=== PATIENT | male | born 1990 | race Caucasian/White ===

== ENCOUNTER 2019-07-02 14:27 | Observation (INO) ==
--- NOTE | 2019-07-02 14:42 | ERNOTE ---
Medical Problem HPI - Narrative Date of Service: 07/02/19 - General Chief Complaint: General Assessment Time Seen by Provider: 07/02/19 14:42 Source: patient Exam Limitations: no limitations - Immun/Allergies/Home Medications Immunizations: IMMUNIZATION HX Immunizations Up to Date Yes History of Influenza Vaccine Yes Hx Pneumococcal Vaccination No Allergies/Adverse Reactions: Allergies seasonal Allergy (Uncoded 07/02/19 14:37) Home Medications: HOME MEDICATIONS NK 07/02/19 [Last Taken Unknown] - Pain Score Pain Score #1 Pain Score: 8 - History of Present History Narrative: The patient is a 29 year old male who presents for buttock wound which has been present since 06/27/19. There are no associated symptoms. The patient reports pain to left buttock with extension into anus, 03/09. There are no alleviating factors. There are aggravating factors of sitting position, pressure to area and bowel movement. Previous treatments have included: none. The past medical history includes: noncontributory. The social history is positive for current tobacco use. The patient has had no known ill contacts. Patient states he had a bowel movement on 06/27/19 and then following noted increased pain to left buttock and rectum. Review of Systems - Review of Systems Constitutional: Present: diaphoresis. Absent: fever, chills, fatigue EYE: Present: no symptoms reported ENT: Present: no symptoms reported. Absent: ear pain, nasal drainage, sore throat Respiratory: Present: no symptoms reported. Absent: shortness of breath, cough Cardiology: Present: no symptoms reported. Absent: chest pain Gastrointestinal/Abdominal: Present: other - rectal pain, left buttock . Ab sent: nausea, vomiting, diarrhea, abdominal pain Genitourinary: Present: no symptoms reported Musculoskeletal: Present: no symptoms reported Skin: Present: lesions Neurological: Present: no symptoms reported All Other Systems: All systems neg except as marked Medical History (Last Reviewed 07/02/19 @ 15:53 by GERMAINE Salinas) Acute conjunctivitis Onset Date: 08/15/17 Surgical History: Surgical History (Last Reviewed 07/02/19 @ 15:53 by GERMAINE Salinas) H/O hernia repair Onset Date: 1997 Family History: Family History (Last Reviewed 07/02/19 @ 15:53 by GERMAINE Salinas) Other Cerebral palsy Diabetes Social History: (Last Reviewed 07/02/19 @ 15:53 by GERMAINE Salinas) Social History: adopted: No foster care: No chcf: No Marital status: lives independently: Yes household members: spouse caregiver/support person: No current occupational status: employed 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 Service: No Tobacco: Smoking Status: Current every day smoker tobacco type: cigarettes Smoking cigarettes per day: 10.0 Smoking packs per day: 0.5 Alcohol: alcohol intake: current alcohol intake frequency: 0-2 drinks per day Substance Use: substance use type: does not use Dietary Habits: caffeine: Yes Physical Exam - Physical Exam General Appearance: Present: wd/wn, alert, moderate distress Head Exam: Present: normal inspection Eye Exam: Normal inspection: bilateral Ears, Nose, Throat: Present: normal except -, pharyngeal erythema, tonsillar exudate, tonsillar swelling - 3+ bilateral Neck: Present: normal inspection Respiratory: Present: no respiratory distress, normal breath sounds, no accessory muscle use, lungs clear Cardiovascular/Chest: Present: no murmur, tachycardia Rectal Exam: Present: other - fluctuant abscess to left buttock with extension to left rectum Neurological Exam: Present: alert, oriented, normal mood/affect, no motor/sensory deficits Skin Exam: Present: normal color, diaphoresis Progress - Date and Time Seen: Date and Time: 07/02/19 15:10 Discussed case with , finding concerning for perirectal abscess. will present to evaluate patient. Patient last ate at 1230, salad. 07/02/19 16:29 present to evaluate patient and will admit to ambulatory surgery for I&D of perirectal abscess. - Results and Orders Patient's Lab Results:: I have reviewed the patient's lab results. - Vital Signs Patient's Vital Signs:: I have reviewed the patient's vital signs. Vital Signs: Vital Signs 07/02/19 14:30 Temperature 36 C Pulse Rate 103 H Respiratory Rate 20 Blood Pressure 151/87 H O2 Sat by Pulse Oximetry 98 - Progress/Reassessment Chief Complaint: General Assessment Departure Clinical Impression: Tori-rectal abscess, Strep throat - Departure Disposition: Still a patient Condition: Good
[2019-07-02] MEDS ORDERED: RINGER'S SOLUTION,LACTATED 1,000 ML IV PRN ×2 (16:42→18:50)
--- NOTE | 2019-07-02 17:01 | ANES ---
Anesthesia Pre Procedure Eval Vitals/Labs: Last Vital Signs Temp 37.3 C 07/02/19 16:38 Pulse 98 07/02/19 16:38 Resp 17 07/02/19 16:38 BP 156/100 H 07/02/19 16:38 Pulse Ox 98 07/02/19 16:38 HOME MEDICATIONS Cephalexin 500 mg PO BID 10 Days #20 cap 07/02/19 [Last Taken Unknown] Allergies/Adverse Reactions: Allergies Allergy/AdvReac Type Severity Reaction Status Date / Time seasonal Allergy Uncoded 07/02/19 14:37 - Planned Procedure Planned Procedure: buttocks pain and swelling Medication List Reviewed:: Yes Allergies Verified: Yes Medical History (Last Reviewed 07/02/19 @ 17:00 by Chente King CRNA) Acute conjunctivitis Onset Date: 08/15/17 Surgical History (Last Reviewed 07/02/19 @ 17:00 by Chente King CRNA) H/O hernia repair Onset Date: 1997 Family History (Last Reviewed 07/02/19 @ 17:00 by Chente King CRNA) Other Cerebral palsy Diabetes - Family Anesthesia History Family History:: no untoward family reactions to anesthesia - Airway/Neck/Teeth Within Normal Limits:: Yes Teeth Condition: intact Neck Exam: full range of motion Mallampatti Score: 2 Thyromental (T-M) distance: > 6 cm Mandibulo Hyoid distance: > 3 cm - Respiratory Respiratory Physical: lungs clear Smoking Status: Current every day smoker Discussed smoking cessation including day of surgery: Yes Sleep Apnea currently treated: No Sleep Apnea by current assessment: No - Cardiovascular Tolerate Activity: Good Heart Sounds: S1 & S2, Regular - Gastrointestinal NPO since: 1200 Comments:: light meal - Anesthesia Assessment and Plan ASA Class: PS, II, E Anesthesia Type Plan: General LMA Planned difficult intubation/equipment available: No
[2019-07-02] MEDS ORDERED: fentaNYL CITRATE/PF 50 MCG/ML AMPUL ONE (17:03)
[2019-07-02] MEDS ORDERED: ONDANSETRON HCL/PF 2 MG/ML VIAL ONE (17:03)
[2019-07-02] MEDS ORDERED: PROPOFOL VIAL IV ONE (17:03)
[2019-07-02] MEDS ORDERED: CEFOXITIN SODIUM 2 GM in DEXTROSE 5 % IN WATER 100 ML IV ONE ×2 (17:29)
--- NOTE | 2019-07-02 17:37 | HP ---
Chief Complaint - Chief Complaint Date of Service: 07/02/19 Time of Service: 17:31 Chief Complaint: perirectal abscess History of Present Illness: Had pain after a bowel movement on 06/27/2019. He then noticed pain and swelling starting on 06/29/2019. He had actually scheduled an appointment to see Dr. Franco tomorrow however the pain is so bad he decided to go to the ER. He has not had chills or fever. His bowels are usually fairly loose Medical History (Last Reviewed 07/02/19 @ 17:33 by Arias Orona MD) Acute conjunctivitis Onset Date: 08/15/17 Surgical History: Surgical History (Last Reviewed 07/02/19 @ 17:33 by Arias Orona MD) H/O hernia repair Onset Date: 1997 Family History: Family History (Last Reviewed 07/02/19 @ 17:33 by Arias Orona MD) Other Cerebral palsy Diabetes Social History: (Last Reviewed 07/02/19 @ 17:33 by Arias Orona MD) Social History: adopted: No foster care: No mcc: No Marital status: lives independently: Yes household members: spouse caregiver/support person: No current occupational status: employed 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 Service: No Tobacco: Smoking Status: Current every day smoker tobacco type: cigarettes Smoking cigarettes per day: 10.0 Smoking packs per day: 0.5 Alcohol: alcohol intake: current alcohol intake frequency: 0-2 drinks per day Substance Use: substance use type: does not use Dietary Habits: caffeine: Yes Review Of Systems (GEN) - Review of Systems Generalized/Overall Review: Absent: Chills, Fever EENTM: Present: Other - Sore throat Respiratory: Absent: Cough, Shortness of Breath Cardiac: Absent: Chest Pain, Palpitations Abdominal: Absent: Abdominal Pain, Bright blood from rectum Genitourinary: Present: Other - Only rarely gets up at night. Absent: No Symptoms Reported Musculoskeletal: Present: No Symptoms Reported Neurological: Present: No Symptoms Reported Skin: Present: No Symptoms Reported Endocrine: Present: No Symptoms Reported Immunizations: IMMUNIZATION HX Immunizations Up to Date Yes History of Influenza Vaccine Yes Hx Pneumococcal Vaccination No Allergies/Adverse Reactions: Allergies Allergy/AdvReac Type Severity Reaction Status Date / Time seasonal Allergy Uncoded 07/02/19 14:37 Home Medications: HOME MEDICATIONS Cephalexin 500 mg PO BID 10 Days #20 cap 07/02/19 [Last Taken Unknown] Exam - Exam Vital Signs: Vital Signs - Last Taken Temp 37.2 C 07/02/19 17:25 Pulse 100 07/02/19 17:25 Resp 16 07/02/19 17:25 BP 121/84 07/02/19 17:25 Pulse Ox 97 07/02/19 17:25 Constitutional: Present: Alert, Oriented x3, Cooperative, Moderate distress, Overweight ENT Exam: Present: pharyngeal erythema, other - Rapid strep was positive Eye Exam: bilateral eye: normal inspection Neck: Present: full range of motion, normal inspection Back Exam: Present: normal inspection, no CVA tenderness Respiratory: Present: normal breath sounds Cardiovascular/Chest: Present: regular rate, rhythm, tachycardia Abdomen: Present: soft, nontender /Rectal: Present: Other - Left perirectal abscess with induration tracking toward the rectum Skin Exam: Present: normal color, warm/dry Neurologic: Present: street 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 The risks and possible complications of surgery were explained. Explained about the possibility of future fistula in anal. Explained also that he may require packing changes. After interactive discussion his questions were answered to his apparent satisfaction and he has given informed consent for incision and drainage of perirectal abscess. His last solid p.o. intake was a salad around noon. We will employ SCDs and IV Mefoxin. Problem: Acute (2) Strep throat Assessment: He has a prescription which has been transmitted to the pharmacy for treatment Problem: Acute
[2019-07-02] MEDS ORDERED: BUPIVACAINE HCL/EPINEPHRINE 50 ML VIAL IJ ONE (18:14)
--- NOTE | 2019-07-02 18:44 | ANES ---
Post Anesthesia Assessment - Vital Signs Vitals: Last Vital Signs Temp 37.2 C 07/02/19 17:25 Pulse 100 07/02/19 17:25 Resp 16 07/02/19 17:25 BP 121/84 07/02/19 17:25 Pulse Ox 97 07/02/19 17:25 Airway Patency: Normal - Mental Status Level Of Consciousness: Awake - Pain Level Pain Score: 0 - N/V Assessment Nausea/Vomiting Presence: None Dehydration:: No
--- NOTE | 2019-07-02 18:44 | ANES ---
Post Anesthesia Discharge - Transfer of Care Transfer of Care handoff given to nurse: Yes - Discharge from PACU Discharge from PACU when meets criteria: Yes
[2019-07-02] MEDS ORDERED: HYDROmorphone HCL 1 MG/ML DISP.SYRIN IV PRN (18:50)
--- NOTE | 2019-07-02 19:02 | OR ---
Operative Report - Dictated Report Narrative: OPERATIVE REPORT DATE OF OPERATION: 07/02/2019 PREOPERATIVE DIAGNOSIS: Perirectal abscess POSTOPERATIVE DIAGNOSIS: Perirectal abscess OPERATION: Incision and drainage of perirectal abscess SURGEON: Arias Orona MD ANESTHESIA: General LMA Ba King CRNA INDICATIONS FOR PROCEDURE: The patient is a 29-year-old male who presented to the emergency room with a history of perianal pain that began on 06/27/2019. He was found to have a perirectal abscess and is brought for drainage FINDINGS: 4 x 5 cm perirectal abscess just to the left of posterior midline, no direct connection to the rectal NARRATIVE OF PROCEDURE: The patient was identified preoperatively and prior to the administration of anesthetic a multidisciplinary timeout was observed. With the patient supine SCDs were applied, 2 g of IV Mefoxin administered and general LMA administered. The patient was then placed in the dorsal lithotomy position and the perineum was prepped with Betadine. The area was isolated with sterile drapes and the remainder the patient was covered with sterile disposable drapes. The area was inspected. There was a large fluctuant area just to the left of the posterior midline. There was no visible fistula. Digital rectal exam revealed good sphincter tone no masses in the rectum and no direct connection with the abscess. A cruciate skin incision was made at the margin of the anoderm just to the left of the posterior midline. A large cavity was entered. There was purulent bloody content which was cultured. The cavity was explored and loculations lysed. The cavity was then irrigated clean with saline. The area was infiltrated with 0.5% Marcaine with epinephrine. The cavity was then packed with 2 inch iodoform gauze. A dressing of Mepilex border and Medipore tape with mesh pants was applied. The operative procedure was terminated at this point. The patient tolerated the anesthetic and procedure well without complication. There was no measurable blood loss. A culture was submitted. All counts were correct. The patient was returned to the supine position without incident. He was recovered in the operating room and then returned to the SCU for observation status. Plan at this time is to continue IV Mefoxin with return to the OR tomorrow for packing change under anesthesia. Reviewed and electronically signed
[2019-07-02] MEDS: oxyCODONE HCL/ACETAMINOPHEN 1 TAB TABLET PO PRN (20:41)
[2019-07-03] MEDS: CEFOXITIN SODIUM 1 GM in DEXTROSE 5 % IN WATER 100 ML IV SCH ×6 (00:38→12:05)
[2019-07-03] MEDS: oxyCODONE HCL/ACETAMINOPHEN 1 TAB TABLET PO PRN ×4 (01:23→19:08)
--- NOTE | 2019-07-03 12:07 | ANES ---
Anesthesia Pre Procedure Eval Vitals/Labs: Last Vital Signs Temp 36.9 C 07/03/19 08:42 Pulse 70 07/03/19 08:42 Resp 16 07/03/19 08:42 BP 118/77 07/03/19 08:42 Pulse Ox 97 07/03/19 08:42 HOME MEDICATIONS Cephalexin 500 mg PO BID 10 Days #20 cap 07/02/19 [Last Taken Unknown] Allergies/Adverse Reactions: Allergies Allergy/AdvReac Type Severity Reaction Status Date / Time seasonal Allergy Uncoded 07/02/19 14:37 - Planned Procedure Planned Procedure: DRSG change Medication List Reviewed:: Yes Allergies Verified: Yes Medical History (Last Reviewed 07/03/19 @ 12:06 by Maco Saeed CRNA) Acute conjunctivitis Onset Date: 08/15/17 Surgical History (Last Reviewed 07/03/19 @ 12:06 by Maco Saeed CRNA) History of incision and drainage Onset Date: 07/02/19 [place]-s[place] rectal abscess. H/O hernia repair Onset Date: 1997 Family History (Last Reviewed 07/03/19 @ 12:06 by Maco Saeed CRNA) Other Cerebral palsy Diabetes - Family Anesthesia History Family History:: no untoward family reactions to anesthesia, no familial bleeding tendencies, no family history of clotting disorders, no family history of premature - Airway/Neck/Teeth Within Normal Limits:: Yes Teeth Condition: intact Mallampatti Score: 2 Thyromental (T-M) distance: > 6 cm Mandibulo Hyoid distance: > 3 cm - Respiratory Respiratory Physical: lungs clear Smoking Status: Current every day smoker Discussed smoking cessation including day of surgery: No Sleep Apnea currently treated: No Sleep Apnea by current assessment: No Discussed Risks/Treatment of RAMIRO: No - Cardiovascular Tolerate Activity: Good Heart Sounds: S1 & S2, Regular - Gastrointestinal NPO since: mn - Anesthesia Assessment and Plan ASA Class: PS, II Anesthesia Type Plan: General LMA - possible, MAC
[2019-07-03] MEDS ORDERED: LIDOCAINE HCL 20 ML VIAL ONE (18:04)
[2019-07-03] MEDS ORDERED: PROPOFOL VIAL IV ONE (18:05)
--- NOTE | 2019-07-03 18:44 | ANES ---
Post Anesthesia Assessment - Vital Signs Vitals: Last Vital Signs Temp 36.6 C 07/03/19 18:37 Pulse 77 07/03/19 18:37 Resp 16 07/03/19 18:37 BP 149/94 H 07/03/19 18:37 Pulse Ox 100 07/03/19 18:37 Airway Patency: Normal - Mental Status Level Of Consciousness: Awake - Pain Level Pain Score: 0 - N/V Assessment Nausea/Vomiting Presence: None Dehydration:: No
--- NOTE | 2019-07-03 18:44 | ANES ---
Post Anesthesia Discharge - Transfer of Care Transfer of Care handoff given to nurse: Yes - Discharge from PACU Discharge from PACU when meets criteria: Yes - Discharge to ASU Discharge to ASU-no complications/pt stable: Yes
--- NOTE | 2019-07-03 18:47 | OR ---
Operative Report - Dictated Report Narrative: OPERATIVE REPORT DATE OF OPERATION: 07/03/2019 PREOPERATIVE DIAGNOSIS: Perirectal abscess POSTOPERATIVE DIAGNOSIS: Perirectal abscess (improved) OPERATION: Removal of packing and wound inspection SURGEON: Arias Orona MD ANESTHESIA: JEREMIAH Saeed CRNA INDICATIONS FOR PROCEDURE: The patient is a 29-year-old male who had incision and drainage of a left perirectal abscess with packing last night. He is brought for packing removal and wound inspection. FINDINGS: Very clean cavity, no extension (packing left out) NARRATIVE OF PROCEDURE: The patient was identified preoperatively and prior to the administration of anesthetic a multidisciplinary timeout was observed. With the patient in the left lateral position and after the administration of intravenous sedation the old dressing was removed. The packing was removed from the abscess cavity. The surrounding inflammation has resolved. The cavity is very clean with no additional purulence. The wound was hemostatic. Decision was made to leave the wound open and an ABD dressing with mesh pants was applied. The operative procedure was terminated at this point. The patient tolerated the anesthetic and procedure well without complication. He was transferred back to the floor awake and in stable condition. RECOMMENDATION: The patient will be discharged home. He will keep the wound is clean as possible, use a shower or sitz bath. He is to change ABDs as needed. He has phone numbers to call for questions or concerns and a return office appointment will be made for next week. We will continue on his antibiotics for strep throat Reviewed and electronically signed
--- NOTE | 2019-07-03 18:55 | DS ---
(1) Tori-rectal abscess Problem: Acute (2) Strep throat Problem: Acute Date of Discharge:: 07/03/19 Description of Stay: He underwent incision and drainage of a left perirectal abscess on 07/03/2019. Iodoform gauze was placed as packing. He was placed in observation bed for continued IV Mefoxin, pain control, and return to the OR for wound inspection which was performed on 07/04/2019. The wound was clean with no extension and resolution of inflammation. He will be discharged home with instructions to use ABD pads and mesh pants. To keep the wound is clean as possible. He has phone numbers to call for questions or concerns. He will use [id number] Tylenol or Advil for discomfort. He has a prescription for cephalexin for his strep throat. He is to call the office tomorrow to arrange a follow-up appointment for 07/08 or 07/09/2019 Procedures Performed: see notes below - Incision and drainage of perirectal abscess 07/02/2019 and packing removal and wound inspection 07/03/2019 Results and Findings: Pending Mircobiology Results 07/02/19 18:09 Buttock - Unknown Abscess Culture - Preliminary Gram Negative Bacilli Lab Pending Results 07/02/19 14:57: Group A Strep Rapid Positive H Discharge Location: Home Disposition: Home self-care Condition: Good Discharge Activity: Activity as tolerated, Other - Shower and keep the wound clean. Use ABDs and mesh pants Discharge Diet: General/regular food Problem Oriented Discharge Instructions to Patient/Family: Perirectal Abscess Additional Patient Instructions (free text): He is to call tomorrow morning and make an appointment for Monday or Monday of next week (07/08 or 07/09/2019) Shower and keep the wound clean. Use ABDs and mesh pants. Call Dr Orona [phone] for questions or concerns Use Tylenol or ibuprofen for discomfort. Continue the cephalexin prescribed for his strep throat Complete Home Medications List: Complete Home Medication List: Cephalexin 500 mg PO BID 10 Days #20 cap 07/02/19
[2019-07-03 20:11] VITALS: BP 131/73
== END 2019-07-03 20:05 | disposition home or self-care (01) ==
LOC: ER 14:27 → SCU 16:25 → AMB 16:25 → SCU 17:35
PROVIDERS: ADMIT Surgery; ATTEND Surgery
PROC: [UNRECOGNIZED PROCEDURE] (2019-07-02 18:15)
DX: B96.20 Unspecified Escherichia coli [E. coli] as the cause of diseases classified elsewhere; J02.0 Streptococcal pharyngitis; K61.39 Other ischiorectal abscess
CPT/HCPCS: 87070; 87077; 87186; 87430; 96365; 96366; 99284; G0378; J2405